=== PATIENT | male | born 1960 | race Caucasian/White ===

== ENCOUNTER 2023-05-13 15:15 | Emergency (ER) | payer OTHER ==
[~2023-05-13] VITALS: Ht 167.6 cm; Wt 97.7 kg
[2023-05-13 16:00] VITALS: PULSE 75; RESP 18; O2SAT 93
[2023-05-13 16:12] LABS: Basophils # (auto) 0 10 ^3/uL (0-0.2); Basophils % (auto) 0.4 % (0.0-2.0); Eosinophils # (auto) 0.1 10 ^3/uL (0-0.8); Hemoglobin 14.5 g/dL (13.5-17.5); Neutrophils # (auto) 6.3 10 ^3/uL (1.6-8.6)
[2023-05-13 16:14] LABS: Eosinophils % (auto) 0.6 % (0.0-7.0); Hematocrit 43.3 % (41.0-53.0); Lymphocytes # (auto) 1.1 10 ^3/uL (0.4-5.4); Lymphocytes % (auto) 13.5 % (10.0-50.0); Mean Corpuscular Hgb Conc. 33.6 g/dL (32.0-36.0); Mean Corpuscular Volume 101.4 fL (80.0-100.0); Monocytes # (auto) 0.9 10 ^3/uL (0-1.3); Monocytes % (auto) 10.6 % (0.0-12.0); Neutrophils % (auto) 74.9 % (37.0-80.0); Red Blood Cells 4.27 10^6/uL (4.5-5.90); Red Cell Distribution Width 14.9 % (11.8-14.3); White Blood Cell 8.4 10^3/uL (4.4-10.8)
[2023-05-13 16:30] LABS: Alanine Aminotransferase 20 U/L (7-40); Alkaline Phosphatase 117 U/L (46-116); Anion Gap 8 (5-15); Aspartate Aminotransferase 19 U/L (13-40); BUN/Creatinine Ratio 31.3 (10.0-20.0); Bilirubin, Total 0.5 mg/dL (0.2-1.0); Blood Alcohol 21.6 mg/dL (<10); Blood Urea Nitrogen 21 mg/dL (9-23); Carbon Dioxide 22 mmol/L (20-30); Chloride 111 mmol/L (98-107); Glucose 98 mg/dL (74-106); Potassium 3.4 mmol/L (3.5-5.1); Sodium 141 mmol/L (136-145); Total Protein 6.4 g/dL (5.7-8.2)
[2023-05-13 16:47] LABS: Magnesium 1.3 mg/dL (1.6-2.6)
[2023-05-13] MEDS ORDERED: IOHEXOL 350 MG/ML 100ML IJ ONE (17:48)
[2023-05-13 18:22] LABS: Urine Bacteria NONE SEEN /hpf (None Seen); Urine Blood Negative /uL (Negative); Urine Clarity Clear (Clear); Urine Color Yellow (Yellow); Urine Mucus FEW (None Seen); Urine Protein, UAD 1+ (Negative); Urine Specific Gravity 1.019 (1.001-1.035); Urine Urobilinogen Normal (Negative); Urine WBC 1 /hpf (0 - 3); Urine pH 6.5 (5.0-8.0)
[2023-05-13 20:00] VITALS: BP 107/74; PULSE 92; RESP 12; TEMP 97.7; O2SAT 93
== END 2023-05-13 20:58 | disposition home or self-care (01) ==
LOC: ER 15:15 → EDBD 15:15 → ER 20:26
DX: R55 Syncope and collapse (principal); F17.210 Nicotine dependence, cigarettes, uncomplicated; Z88.0 Allergy status to penicillin
CPT/HCPCS: 36415; 70450; 71045; 71275; 80053; 80320; 81001; 83735; 84484; 85025; 85379; 93005; 99285; Q9967